=== PATIENT | female | born 1955 | race Caucasian/White ===

== ENCOUNTER 2022-10-02 12:50 | Day surgery (SDC) | payer MEDICARE ==
[~2022-10-02] VITALS: Ht 172.7 cm; Wt 112.2 kg
[~2022-10-02 12:50] MED LIST: ATORVASTATIN CA40 MG PO; AVAPRO150 MG PO; BENICAR5 MG PO; FLUOXETINE HCL40 MG PO; LITHIUM CARBON300 M2 PO; LITHIUM CARBON300 MG PO; METFORMIN HCL500 M1 PO; NAPROXEN500 MG PO; NEURONTIN300 MG PO; PROPRANOLOL HCL60 M1 PO; TRAZODONE HCL50 MG PO; VENTOLIN HFA18 GM INH
[2022-10-02 13:09] VITALS: BP 155/69
[2022-10-02 17:21] VITALS: BP 142/67
--- NOTE | 2022-10-02 17:22 | NUR ---
10/02/22 1722 Paulina Gomez 1540 PT ARRIVED IN PACU SLEEPY WITH NO C/O'S. ABD SOFT. [address] AT BEDSIDE. ALL QUESTIONS ANSWERED. 1615 SITTING UP IN BED SIPPING ON WATER. DC INSTRUCTIONS GIVEN. 1635 LEFT VIA W/C.
--- NOTE | 2022-10-04 18:00 | OR ---
[facility] [address], [place] [address] Signed DATE OF OPERATION: 10/02/2022 SURGEON: Kenyon Flannery MD PREOPERATIVE DIAGNOSIS: Family history of colon cancer (father). POSTOPERATIVE DIAGNOSIS: Normal colon to cecum. PROCEDURE: Total colonoscopy to the cecum. ANESTHESIA: Intravenous sedation; fentanyl 100 mcg and Versed 6 mg. INDICATION: This 67-year-old white woman is a patient of Dr. Raghu Mcdonald in [place]. She underwent colonoscopy in 2013, at which time she was found to have hyperplastic polyp of the rectum. She was recommended for five year followup due to family history of colon cancer in her father. In part related to the pandemic, she did not follow up in that timeframe. She has no current symptoms of bleeding, diarrhea, or constipation. She is here to undergo colonoscopy. She understands the risk of bleeding, infection, and perforation. FINDINGS: The prep was good. Complete colonoscopy was undertaken to the cecum without question. She had no sign of polyps, diverticular formation, colitis, or cancer. DESCRIPTION OF PROCEDURE: The patient was brought to the endoscopy suite and placed in the lateral decubitus position, given intravenous sedation to the point of slurred speech and nystagmus. Digital rectal examination was normal. An Olympus video colonoscope was passed in the rectum and manipulated throughout the colon ultimately intubating the cecum itself. The ileocecal valve and appendiceal orifice were normal. The scope was withdrawn from that point and careful inspection upon withdrawal of the scope showed no sign of polyps, diverticular formation, colitis, or cancer. Retroflexed view was normal. Scope was removed and the patient was taken to the recovery room in good condition. Electronically Signed By: KENYON FLANNERY MD 10/04/22 [facility] PATIENT NAME: ADE NICOLE OPERATIVE REPORT DATE OF : 55 REPORT #: [id number] PHYSICIAN: KENYON FLANNERY MD PCP: RAGHU MCDONLAD MD REPORT IS CONFIDENTIAL AND NOT TO BE RELEASED WITHOUT AUTHORIZATION [facility] [address], [place] [address] Signed CONCLUDING DIAGNOSIS: Normal colon to cecum. PLAN: Recommend repeat colonoscopy in 5 years based on current guidelines related to 1st degree family history of colon cancer (father). She will return to the ongoing care of Dr. Raghu Guajardo. Kenyon Flannery MD JM/MODL /[id number] cc: Raghu Mcdonald MD Copies: RAGHU MCDONALD MD ~ Electronically Signed By: KENYON FLANNERY MD 10/04/22 1800 PATIENT NAME: ADE NICOLE OPERATIVE REPORT DATE OF : 55 REPORT #: [id number] PHYSICIAN: KENYON FLANNERY MD PCP: RAGHU CMDONALD MD REPORT IS CONFIDENTIAL AND NOT TO BE RELEASED WITHOUT AUTHORIZATION
== END 2022-10-02 16:35 | disposition home or self-care (01) ==
LOC: DS 12:50 → OPS 12:50 → DS 14:00 → OPS 16:35
PROVIDERS: ATTEND Surgery
PROC: 0DJD8ZZ Inspection of Lower Intestinal Tract, Via Natural or Artificial Opening Endoscopic (ICD-10-PCS; principal; 2022-10-02 14:00)
DX: Z12.11 Encounter for screening for malignant neoplasm of colon (principal); G47.33 Obstructive sleep apnea (adult) (pediatric); F31.9 Bipolar disorder, unspecified; E78.5 Hyperlipidemia, unspecified; I10 Essential (primary) hypertension; Z86.010 Personal history of colon polyps; Z80.0 Family history of malignant neoplasm of digestive organs
CPT/HCPCS: 99153; G0500; J2250; J3010; J7121